=== PATIENT | female | born 1960 | race Caucasian/White ===

== ENCOUNTER 2016-04-13 11:47 | Outpatient (CLI) | payer BC, OTHER | END 2016-04-13 11:48 | disposition home or self-care (01) | DX: Z12.31 Encounter for screening mammogram for malignant neoplasm of breast (principal) ==

== ENCOUNTER 2016-06-03 08:39 | Day surgery (SDC) | payer BC, OTHER ==
[2016-06-03] MEDS ORDERED: LACTATED RINGERS 1,000 ML IV ONE ×2 (09:03→09:33)
[2016-06-03] MEDS ORDERED: fentaNYL 250 MCG/5 ML VIAL IVP ONE (09:29)
[2016-06-03] MEDS ORDERED: MIDAZOLAM 2 MG/2 ML VIAL IVP ONE (09:29)
== END 2016-06-03 08:40 | disposition home or self-care (01) ==
PROC: 0DBN8ZX Excision of Sigmoid Colon, Via Natural or Artificial Opening Endoscopic, Diagnostic (ICD-10-PCS; 2016-06-03)
PROC: 0DBP8ZX Excision of Rectum, Via Natural or Artificial Opening Endoscopic, Diagnostic (ICD-10-PCS; principal; 2016-06-03 09:45)
DX: Z12.11 Encounter for screening for malignant neoplasm of colon (principal); D12.5 Benign neoplasm of sigmoid colon; D12.8 Benign neoplasm of rectum; K64.8 Other hemorrhoids; Z90.710 Acquired absence of both cervix and uterus; Z88.0 Allergy status to penicillin; Z80.1 Family history of malignant neoplasm of trachea, bronchus and lung; Z87.891 Personal history of nicotine dependence
CPT/HCPCS: 45380; J3010; J7120

== ENCOUNTER 2016-06-14 07:38 | Outpatient (CLI) | payer BC, OTHER | END 2016-06-14 07:39 | disposition home or self-care (01) | DX: Z12.2 Encounter for screening for malignant neoplasm of respiratory organs (principal); Z87.891 Personal history of nicotine dependence ==